=== PATIENT | female | born 1965 | race Caucasian/White ===

== ENCOUNTER 2023-01-13 16:22 | Emergency (ER) | payer OTHER, MEDICAID, SELFPAY ==
[2023-01-13 16:30] VITALS: BP 128/69; PULSE 97; RESP 16; TEMP 36.6; O2SAT 98
--- NOTE | 2023-01-13 16:44 | PC.NURSE ---
Pt states she has a broken tooth on the upper L side. Unable to get it pulled until February.
--- NOTE | 2023-01-13 17:19 | ED.GENADULT ---
HPI - General Adult General Chief complaint: Dental/Oral Stated complaint: tooth abscess Time Seen by Provider: 01/13/23 17:19 Source: patient Mode of arrival: Ambulatory History of Present Illness HPI narrative: Patient is a 57-year-old female who has a no issue with left upper posterior teeth. She had part of her teeth crack. She went to a local dentist and she waited for several hours but they could not get her in. That was several days ago. Since that time she has developed discomfort and swelling to that portion of her face. Related Data Previous Rx's Medication Instructions Recorded clindamycin HCl 300 mg capsule 300 mg PO QID 7 days #28 caps 01/13/23 Allergies Allergy/AdvReac Type Severity Reaction Status Date / Time Penicillins Allergy Anaphylaxis Verified 01/13/23 16:30 Review of Systems Constitutional Constitutional: Reports system reviewed and no additional complaints, except as documented ENT Ears, Nose, Mouth, and Throat: Reports system reviewed and no additional complaints, except as documented Respiratory Respiratory: Reports system reviewed and no additional complaints, except as documented Integumentary/Breasts Skin/Breast: Reports system reviewed and no additional complaints, except as documented Patient History Social History Smoking Status: Never smoker Smoking Status: Never smoker Substance Use Type: does not use Exam Initial Vital Signs Initial Vital Signs: Vital Signs Temperature 98 F 01/13/23 16:30 Pulse Rate 97 H 01/13/23 16:30 Respiratory Rate 16 01/13/23 16:30 Blood Pressure 128/69 01/13/23 16:30 Pulse Oximetry 98 01/13/23 16:30 Oxygen Delivery Method Room Air 01/13/23 16:30 HENMT Head: normal to inspection Ears: TM's normal bilaterally Face and sinus: no fluctuance and other (Swelling left side of face) Teeth and gingiva: poor dentition Resp Effort & Inspection: normal respiratory effort Skin General: no rashes or lesions noted Extrem General: normal to inspection Course Vital Signs Vital signs: Vital Signs - 8 hr 01/13/23 16:30 Temperature 98 F Pulse Rate 97 H Respiratory Rate 16 Blood Pressure 128/69 Pulse Oximetry 98 Oxygen Delivery Method Room Air Medical Decision Making [facility] Narrative Medical decision making narrative: There is no defined abscess seen on the exam today that would be amenable to an incision and drainage. She definitely has cracked teeth in her left upper posterior molars. Plan will be to start her on antibiotics. She will need to follow-up with a dentist. She was given care instructions and return precautions. She expressed understanding and agreement. Discharge Plan Departure Patient Disposition: Home Clinical Impression: Dental abscess Instructions: Tooth Abscess Activity Restrictions/Additional Instructions: I do recommend that you take all of the antibiotics as directed. [facility] [place], operated by [facility] per your request. It is important that you follow-up with a dentist for definitive treatment. Prescriptions: New clindamycin HCl 300 mg capsule 300 mg PO QID 7 Days Qty: 28 0RF Stand Alone Forms: Patient Portal/API
[2023-01-13 17:24] VITALS: BP 136/65; PULSE 89; O2SAT 98
== END 2023-01-13 17:24 | disposition home or self-care (01) ==
PROVIDERS: Emergency Provider Emergency Medicine
DX: K04.7 Periapical abscess without sinus (principal)
CPT/HCPCS: 99281

== ENCOUNTER 2023-11-17 02:07 | Emergency (ER) | payer OTHER, MEDICAID, SELFPAY ==
[2023-11-17] VITALS (9 sets, daily range): BP systolic 102–120; BP diastolic 49–58; PULSE 91–107; RESP 17–28; TEMP 36.7; O2SAT 94–100; BMI 204.2
--- NOTE | 2023-11-17 02:09 | DI.RAD.S_ITS ---
PROCEDURE: XR CHEST 1V INDICATIONS: chest pain TECHNIQUE: One view of the chest was acquired. COMPARISON: None. FINDINGS: Surgical changes and devices: None. Lungs and pleura: Lungs are clear. No pleural effusions or pneumothorax. Mediastinum: Mediastinal contours appear normal. Heart size is enlarged. Bones and chest wall: No suspicious bony lesions. Overlying soft tissues appear unremarkable. IMPRESSION: No acute pulmonary process. The above findings are concordant with preliminary report. Dictated by: Liliya Painter M.D. on 11/17/2023 at 8:39 Approved by: Liliya Painter M.D. on 11/17/2023 at 8:40
--- NOTE | 2023-11-17 02:09 | EKG_ITS ---
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
[2023-11-17] MEDS: ALBUTEROL/IPRATROPIUM 3 ML AMPUL INH (02:12)
[2023-11-17 02:46] LABS: Add Manual Diff / Slide Review NO; Basophils Absolute Auto 100 /uL (0-100); Basophils Percent Auto 1.1 % (0-2); Eosinophils Absolute Auto 700 /uL (0-450); Eosinophils Percent Auto 5.8 % (2-4); Hematocrit 40.1 % (36-46); Lymphocytes Absolute Auto 6600 /uL (1100-4500); Lymphocytes Percent Auto 52.8 % (25-40); Mean Corpuscular HGB Conc 32.6 % (30-36); Mean Corpuscular Hemoglobin 26.8 PG (26-34); Mean Corpuscular Volume 82.2 fL (80-100); Monocytes Absolute Auto 700 /uL (0-900); Monocytes Percent Auto 5.8 % (3-14); Neutrophils Absolute Auto 4300 /uL (1500-7000); Neutrophils Percent Auto 34.5 % (50-75); Platelet Count 254 X10^3/uL (150-400); Red Blood Cell Count 4.88 X10^6/uL (4.0-5.2); Red Cell Distribution Width 15.1 % (11.6-14.8); White Blood Cell Count 12.5 X10^3/uL (4.5-11.0)
--- NOTE | 2023-11-17 02:50 | ED_ITS ---
HPI - SOB/Dyspnea General Chief Complaint: Shortness of Breath/Dyspnea Stated Complaint: Difficulty breathing Time Seen by Provider: 11/17/23 02:08 Source: patient and EMS Mode of arrival: EMS Limitations: no limitations History of Present Illness HPI Narrative: 58-year-old female with history of diabetes, denies history of chronic lung disease, as 2 days' duration of cough productive of clear sputum, increasing shortness of breath. Some chest pain but with cough only. No fevers or chills. No history of blood clots to legs or lungs. No leg pain or swelling symptoms. No injury or trauma new activities. No exposure to household members or other close contacts with similar recent respiratory symptoms. She has not recently been on antibiotics or any recent steroids. She felt short enough to call ambulance tonight, EN route was given a breathing treatment with some improvement of symptoms. No steroids given. Related Data Previous Rx's Medication Instructions Recorded prednisone 20 mg tablet 40 mg (2 x 20 mg) PO DAILY 5 days 11/17/23 #10 tabs Allergies Allergy/AdvReac Type Severity Reaction Status Date / Time Penicillins Allergy Anaphylaxis Verified 01/13/23 16:30 Review of Systems Review of Systems Narrative: see HPI Patient History Social History Smoking Status: Never smoker Smoking Status: Never smoker Substance Use Type: does not use Exam Narrative Exam Narrative: GENERAL: Well-developed patient, in mild distress. HEAD: Atraumatic. Normocephalic. EYES: Pupils equal round and reactive. Extraocular motions intact. No scleral icterus. No injection or drainage. ENT: Nose without bleeding, purulent drainage. Throat without erythema, tonsillar hypertrophy or exudate. Airway patent. NECK: Trachea midline. Non tender CARDIOVASCULAR: Regular rate and rhythm without murmurs, gallops, or rubs. RESPIRATORY: Clear to auscultation. Breath sounds equal bilaterally. No wheezes, rales, or rhonchi. GASTROINTESTINAL: Abdomen soft, non-tender, nondistended. EXTREMITIES: No edema or joint tenderness. BACK: Nontender without deformity or crepitance. No flank tenderness. NEURO: AOx3. SKIN: No rash or erythema of visible areas Initial Vital Signs Initial Vital Signs: Vital Signs Pulse Rate 100 H 11/17/23 02:12 Respiratory Rate 28 H 11/17/23 02:12 Pulse Oximetry 100 07/24/24 02:12 Oxygen Delivery Method Aerosol Mask 11/17/23 02:12 Oxygen Flow Rate 8 11/17/23 02:12 Course Orders Ordered: Discontinued Medications Albuterol (Albuterol Hfa Prepack) 1 box MISC DIRECTED ONE Stop: 11/17/23 03:57 Last Admin: 11/17/23 04:05 Dose: 1 box Documented By: KAMLESH Albuterol/Ipratropium (Albuterol/Ipratropium 3 Ml Ampul) 3 ml INH NOW ONE Stop: 11/17/23 02:10 Last Admin: 11/17/23 02:12 Dose: 3 ml Documented By: KAMLESH Sodium Chloride (Normal Saline 0.9%) 1,000 mls @ 150 mls/hr IV CONT RAQUEL Last Admin: 11/17/23 04:01 Dose: Not Given Documented By: JUDITH Sodium Chloride (Normal Saline 0.9%) 1,000 mls @ 1,000 mls/hr IV BOLUS ONE Stop: 11/17/23 04:01 Last Infusion: 11/17/23 04:32 Dose: Infused Documented By: Admin: 11/17/23 03:05 Dose: 1,000 mls/hr Documented By: JUDITH Methylprednisolone (Methylprednisolone 125 Mg/2 Ml Vial) 125 mg IV NOW ONE Stop: 11/17/23 02:53 Last Admin: 11/17/23 03:05 Dose: 125 mg Documented By: JUDITH Methylprednisolone (Methylprednisolone 125 Mg/2 Ml Vial) 125 mg IV NOW ONE Stop: 11/17/23 03:03 Last Admin: 11/17/23 03:04 Dose: Not Given Documented By: JUDITH Vital Signs Vital signs: Vital Signs - 8 hr 11/17/23 02:12 11/17/23 02:12 11/17/23 02:17 Temperature 98.1 F Pulse Rate 100 H 101 H 102 H Respiratory Rate 28 H 26 H Blood Pressure 118/56 L Pulse Oximetry 100 100 100 Oxygen Delivery Method Aerosol Mask Aerosol Mask Oxygen Flow Rate 8 11/17/23 02:30 11/17/23 02:43 11/17/23 02:43 Temperature Pulse Rate 106 H 107 H Respiratory Rate Blood Pressure 102/49 L Pulse Oximetry 99 98 Oxygen Delivery Method Room Air Oxygen Flow Rate 11/17/23 03:00 11/17/23 03:00 11/17/23 03:02 Temperature Pulse Rate 103 H Respiratory Rate 18 Blood Pressure 120/58 L Pulse Oximetry 95 Oxygen Delivery Method Room Air Oxygen Flow Rate 11/17/23 03:02 11/17/23 03:30 11/17/23 03:30 Temperature Pulse Rate 103 H 92 H Respiratory Rate 18 17 Blood Pressure 113/57 L Pulse Oximetry 97 95 Oxygen Delivery Method Room Air Room Air Oxygen Flow Rate 11/17/23 04:00 11/17/23 04:00 11/17/23 04:30 Temperature Pulse Rate 91 H 93 H Respiratory Rate 17 17 Blood Pressure 110/57 L Pulse Oximetry 94 94 Oxygen Delivery Method Oxygen Flow Rate 11/17/23 04:30 Temperature Pulse Rate Respiratory Rate Blood Pressure 120/56 L Pulse Oximetry Oxygen Delivery Method Oxygen Flow Rate MDM - SOB/Dyspnea Lab Data Attestation: I reviewed the patient's lab results. 11/17/23 02:35 11/17/23 02:35 Labs: Lab Results 11/17/23 11/17/23 Range/Units 02:25 02:35 WBC 12.5 H (4.5-11.0) X10^3/uL RBC 4.88 (4.0-5.2) X10^6/uL Hgb 13.0 (12.0-16.0) g/dL Hct 40.1 (36-46) % MCV 82.2 (80-100) fL MCH 26.8 (26-34) PG MCHC 32.6 (30-36) % RDW 15.1 H (11.6-14.8) % Plt Count 254 (150-400) X10^3/uL Neut % (Auto) 34.5 L (50-75) % Lymph % (Auto) 52.8 H (25-40) % [place] % (Auto) 5.8 (3-14) % Eos % (Auto) 5.8 H (2-4) % Baso % (Auto) 1.1 (0-2) % Neut # (Auto) 4300 (5482-1141) /uL Lymph # (Auto) 6600 H (8639-8896) /uL [place] # (Auto) 700 (0-900) /uL Eos # (Auto) 700 H (0-450) /uL Baso # (Auto) 100 (0-100) /uL Sodium 139 (137-145) mmol/L Potassium 4.1 (3.4-5.1) mmol/L Chloride 107 (98-107) mmol/L Carbon Dioxide 20 L (22-32) mmol/L BUN 21 H (7-17) mg/dL Creatinine 0.91 (0.52-1.04) mg/dL Estimated GFR > 60 (>60) mL/min BUN/Creatinine Ratio 23.1 H (6-22) Glucose 214 H (70-100) mg/dL Calcium 9.8 (8.4-10.2) mg/dL Total Bilirubin 0.5 (0.2-1.3) mg/dL AST 24 (14-36) IU/L ALT 27 (<35) IU/L Alkaline Phosphatase 123 (38-126) U/L Total Creatine Kinase 103 (30-135) U/L Troponin I < 0.012 (0.01-0.034) ng/mL Total Protein 7.9 (6.3-8.2) g/dL Albumin 4.5 (3.5-5.0) g/dL Globulin 3.4 (1.7-4.1) g/dL Albumin/Globulin Ratio 1.3 (1.0-2.8) Lipase 190 (23-300) U/L Chlamy pneumoniae PCR Not detected (Not Detect) Adenovirus (PCR) Not detected (Not Detect) B.parapertussis DNA PCR Not detected (Not Detecte) Coronavirus OC43 (PCR) Not detected (Not Detect) Coronavirus HKU1 (PCR) Not detected (Not Detect) Coronavirus 229E (PCR) Not detected (Not Detect) SARS-CoV-2 (PCR) Not detected (Not Detecte) Coronavirus NL63 (PCR) Not detected (Not Detect) Human Metapneumovir PCR Not detected (Not Detect) Influenza Type A (PCR) Not detected (Not Detect) Influenza Type B (PCR) Not detected (Not Detect) M. pneumoniae (PCR) Not detected (Not Detect) Parainfluenza 1 (PCR) Not detected (Not Detect) Parainfluenza 2 (PCR) Not detected (Not Detect) Parainfluenza 3 (PCR) Not detected (Not Detect) Parainfluenza 4 (PCR) Not detected (Not Detect) RSV (PCR) Not detected (Not Detect) Entero/Rhino (PCR) Detected H (Not Detect) Imaging Data Chest x-ray: My Impression: No obvious pulmonary infiltrates, fluid overload, pneumothorax, effusion Radiologist's Impression: Impression: ?No acute cardiopulmonary abnormality is identified.? See radiology report ECG Data Attestation: I personally reviewed and interpreted this ECG as follows: Interpretation: Sinus tachycardia with rate of 100, no obvious ST segment elevation or depression changes. PVC noted. GA 174, QRS 96, QTC 441. MDM Narrative Medical decision making narrative: 58-year-old with 2 days duration productive cough, increasing shortness of breath, some responsiveness to EMS breathing treatment, IV Solu-Medrol in ED, chest x-ray unremarkable. EKG without obvious ischemic changes. Respiratory panel swab was sent and was positive for rhino virus, negative for other pathogens tested. Symptoms further improved after observation. Discharge medication prednisone pulse sent to her pharmacy. Dispensed albuterol inhaler with spacer for home use as needed. Recheck regular provider next couple of days advised. Return precautions discussed. Stable, improved, home with family Critical Care Time Critical Care Time Critical Care Time: Yes Total Critical Care Time: 31 Attestation: The high probability of a clinically significant, sudden or life threatening deterioration of the [cardiopulmonary] system(s) required my full and direct attention, intervention and personal management. The aggregate critical care time was [31] minutes. This time is in addition to time spent performing reported procedures but includes the following: [x] Data Review and interpretation [x] Patient assessment and monitoring of vital signs [x] Documentation [x] Medication orders and management Discharge Plan Departure Patient Disposition: Home Clinical Impression: Shortness of breath, Upper respiratory infection, Rhinovirus infection Activity Restrictions/Additional Instructions: Recent productive cough last couple of days, increasing shortness of breath. No wheezing or crackles on exam, some improvement however with breathing treatment. Albuterol inhaler given for discharge. IV Solu-Medrol steroid given while in the emergency department, course of prednisone for the next few days sent to your pharmacy to take to help open your airways and make breathing easier as well. Respiratory swab was positive for rhino virus species, negative for COVID and influenza and other viruses tested. Take medications as directed. Recheck lungs with your regular doctor in the next couple of days. Return to this/nearest emergency department for any change worsening symptoms or any concerns prior Prescriptions: New prednisone 20 mg tablet 40 mg PO DAILY 5 Days Qty: 10 0RF Stand Alone Forms: Patient Portal/API
[2023-11-17 02:57] LABS: Alanine Aminotransferase 27 IU/L (<35); Albumin 4.5 g/dL (3.5-5.0); Albumin Globulin Ratio 1.3 (1.0-2.8); Alkaline Phosphatase 123 U/L (38-126); Aspartate Aminotransferase 24 IU/L (14-36); BUN Creatinine Ratio 23.1 (6-22); Bilirubin Total 0.5 mg/dL (0.2-1.3); Blood Urea Nitrogen 21 mg/dL (7-17); Calcium 9.8 mg/dL (8.4-10.2); Carbon Dioxide 20 mmol/L (22-32); Chloride 107 mmol/L (98-107); Creatine Kinase 103 U/L (30-135); Estimated Glomerular Filt Rate > 60 mL/min (>60); Globulin 3.4 g/dL (1.7-4.1); Glucose 214 mg/dL (70-100); HEMOLYSIS < 15 (0-50); Lipase 190 U/L (23-300); Potassium 4.1 mmol/L (3.4-5.1); Sodium 139 mmol/L (137-145); Total Protein 7.9 g/dL (6.3-8.2)
[2023-11-17] MEDS: SODIUM CHLORIDE 0.9% 1,000 ML 1000 ML IV (03:05)
[2023-11-17] MEDS: methylPREDNISolone 125 MG/2 ML VIAL IV (03:05)
[2023-11-17 03:09] LABS: Troponin I < 0.012 ng/mL (0.01-0.034)
[2023-11-17 03:20] LABS: Adenovirus Not Detected (Not Detect); B. parapertussis Not Detected (Not Detecte); Bordetella pertussis Not Detected (Not Detect); Chlamydophila pneumoniae Not Detected (Not Detect); Coronavirus 229E Not Detected (Not Detect); Coronavirus HKU1 Not Detected (Not Detect); Coronavirus NL 63 Not Detected (Not Detect); Coronavirus OC43 Not Detected (Not Detect); Human Metapneumovirus Not Detected (Not Detect); Human Rhinovirus/Enterovirus Detected (Not Detect); Influenza A Not Detected (Not Detect); Influenza B Not Detected (Not Detect); Mycoplasma pneumoniae Not Detected (Not Detect); Parainfluenza Virus 1 Not Detected (Not Detect); Parainfluenza Virus 2 Not Detected (Not Detect); Parainfluenza Virus 3 Not Detected (Not Detect); Parainfluenza Virus 4 Not Detected (Not Detect); Respiratory Syncytial Virus Not Detected (Not Detect); SARS- CoV-2 Not Detected (Not Detecte)
[2023-11-17] MEDS: ALBUTEROL HFA PREPACK 1 BOX MISC (04:05)
== END 2023-11-17 04:58 | disposition home or self-care (01) ==
PROVIDERS: Emergency Provider Emergency Medicine
DX: J06.9 Acute upper respiratory infection, unspecified (principal); B34.8 Other viral infections of unspecified site; R06.02 Shortness of breath; R07.9 Chest pain, unspecified; Z11.52 Encounter for screening for COVID-19
CPT/HCPCS: 36415; 71045; 80053; 82550; 83690; 84484; 85025; 87633; 93005; 94640; 96361; 96374; 99284; J2919